=== PATIENT | female | born 1965 | race Native Hawaiian/Other Pacific Islander ===

== ENCOUNTER 2023-10-06 17:11 | Observation (INO) | payer MEDICARE ==
[2023-10-06 20:41] LABS: Hematocrit 22.4 % (36.0-47.0); Hemoglobin 6.2 g/dL (12.0-16.0); Manual Diff?? YES; Mean Corpuscular HGB CONC 27.7 g/dL (32.0-36.0); Mean Corpuscular Hemoglobin 23.4 pg (27.0-31.0); Mean Corpuscular Volume 84.5 fl (78.0-98.0); Mean Platelet Volume 10.9 fL (7.4-10.4); Platelet Count 259 10x3/uL (130-400); RBC Distribution Width 16.4 % (11.5-14.5); Red Blood Cell (RBC) Count 2.65 mill/uL (4.20-5.40); White Blood Cell (WBC) Count 5.7 10x3/uL (4.8-10.8)
[2023-10-06] MEDS ORDERED: Acetaminophen 325 MG TAB PO PRN (20:49)
[2023-10-06] MEDS ORDERED: Ondansetron PF 4 MG/2 ML Vial IVP PRN (20:49)
[2023-10-06] MEDS ORDERED: Ondansetron ODT 4 MG TAB PO PRN (20:49)
[2023-10-06 20:52] LABS: Delete Auto Diff?? YES
[2023-10-06 21:38] LABS: INR-International Normal Ratio 1.1; PTT 26.5 sec (22.9-36.1); Prothrombin Time 13.7 sec (12.0-14.7)
[2023-10-06 22:17] LABS: Band 1 % (5-11); Eosinophils 3 % (0-10); Hypochromia MODERATE=16-30 cells (100X) (0-5/hpf); Lymphocytes 59 % (21-51); Monocytes 6 % (0-10); Neutrophil 28 % (42-75)
[2023-10-06 22:18] LABS: Anisocytosis MODERATE=16-30 cells (100X) (0-5/hpf); Platelet Adequacy Comment Appears Adequate
[2023-10-06 22:44] LABS: Iron Less than 8 ug/dL (50-170); Iron Binding Capacity, Total 363 mcg/dL (265-497)
[2023-10-06 23:24] LABS: Ferritin 2.47 ng/mL (10-291)
[2023-10-07 04:57] LABS: #Eosinphils 0.1 thou/uL (0.0-0.7); #Monocytes 0.7 thou/uL (0.11-0.59); #Neutrophils 1.3 thou/uL (1.40-6.50); %Basophils 0.9 % (0.0-1.0); %Eosinophils 1.5 % (0.0-10.0); %Lymphocytes 51.6 % (21.0-51.0); %Monocytes 16.3 % (0.0-10.0); %Neutrophils 29.3 % (42.0-75.0); Hematocrit 28.7 % (36.0-47.0); Hemoglobin 8.1 g/dL (12.0-16.0); Mean Corpuscular HGB CONC 28.2 g/dL (32.0-36.0); Mean Corpuscular Hemoglobin 22.6 pg (27.0-31.0); Mean Platelet Volume 11.3 fL (7.4-10.4); Platelet Count 253 10x3/uL (130-400); RBC Distribution Width 16.6 % (11.5-14.5); Red Blood Cell (RBC) Count 3.58 mill/uL (4.20-5.40); White Blood Cell (WBC) Count 4.6 10x3/uL (4.8-10.8)
[2023-10-07 05:27] LABS: Anion Gap 9 mmol/L (10-20); BUN (Urea Nitrogen) 8 mg/dL (9.8-20.1); Calc. Creatinine Clearance 0 mL/min (70-130); Calcium 8.6 mg/dL (7.8-10.44); Carbon Dioxide 25 mmol/L (22-29); Chloride 110 mmol/L (98-107); Estimated GFR 101; Glucose 92 mg/dL (70-105); Sodium 140 mmol/L (136-145)
[2023-10-07] MEDS: Levothyroxine Sodium 50 MCG TAB PO SCH (05:54)
[2023-10-07 06:01] LABS: Mean Corpuscular Volume 80.2 fl (78.0-98.0)
[2023-10-07] MEDS: Polyethylene Glycol 3350 17 GM Packet PO SCH (09:36)
[2023-10-07] MEDS: Citalopram 20 MG TAB PO SCH (09:51)
[2023-10-07] MEDS: Ferrous Sulfate 325 MG TAB PO SCH (09:52)
[2023-10-07] MEDS: Iron, Sodium Ferric Gluconate 125 MG in Sodium Chloride 0.9% 100 ML IVPB SCH (12:31)
[2023-10-07] MEDS: Pantoprazole 40 MG VIAL IVP SCH (20:19)
[2023-10-08 05:14] LABS: #Eosinphils 0.1 thou/uL (0.0-0.7); #Monocytes 0.9 thou/uL (0.11-0.59); #Neutrophils 1.4 thou/uL (1.40-6.50); %Basophils 0.6 % (0.0-1.0); %Eosinophils 1.5 % (0.0-10.0); %Lymphocytes 46.3 % (21.0-51.0); %Monocytes 19.9 % (0.0-10.0); %Neutrophils 31.3 % (42.0-75.0); Hemoglobin 8.1 g/dL (12.0-16.0); Mean Corpuscular HGB CONC 28.9 g/dL (32.0-36.0); Mean Corpuscular Volume 79.5 fl (78.0-98.0); Mean Platelet Volume 11.1 fL (7.4-10.4); Platelet Count 243 10x3/uL (130-400); RBC Distribution Width 16.7 % (11.5-14.5); Red Blood Cell (RBC) Count 3.52 mill/uL (4.20-5.40); White Blood Cell (WBC) Count 4.6 10x3/uL (4.8-10.8)
[2023-10-08 05:45] LABS: Anion Gap 10 mmol/L (10-20); BUN (Urea Nitrogen) 8 mg/dL (9.8-20.1); Calc. Creatinine Clearance 70 mL/min (70-130); Calcium 8.8 mg/dL (7.8-10.44); Carbon Dioxide 25 mmol/L (22-29); Chloride 108 mmol/L (98-107); Estimated GFR 102; Glucose 83 mg/dL (70-105); Potassium 3.5 mmol/L (3.5-5.1); Sodium 139 mmol/L (136-145)
[2023-10-08 06:54] LABS: Anisocytosis SLIGHT = 6-15 cells HPF (0-5); CellaVision Operator ID lab.abc; Hypochromia SLIGHT = 6-15 cells HPF (0-5); Platelet Adequacy Comment Platelets Normal; Polychromasia SLIGHT = 2-3 cells HPF (0-2)
[2023-10-08 13:38] VITALS: BP 118/78; TEMP 98
[2023-10-10 13:37] LABS: EliA Celiac New Method **** NEW METHOD ****; t-Transglutaminase (tTG) IgA 0.9 EliAU/mL (<7 Negative)
== END 2023-10-08 14:16 ==
LOC: T4-A 17:11 → INTOOBSV 17:11
PROVIDERS: ADMIT Physician Assistant; ATTEND Family Medicine
DX: D50.9 Iron deficiency anemia, unspecified (principal); E03.9 Hypothyroidism, unspecified; K59.00 Constipation, unspecified; R13.10 Dysphagia, unspecified; H91.90 Unspecified hearing loss, unspecified ear; H54.7 Unspecified visual loss; H26.9 Unspecified cataract; F41.9 Anxiety disorder, unspecified; F32.A Depression, unspecified; Z79.890 Hormone replacement therapy; Z79.899 Other long term (current) drug therapy
CPT/HCPCS: 36430; 80048 ×2; 82607; 82728; 82784; 83516; 83540; 83550; 84443; 85025 ×3; 85610; 85730; 86850; 86900; 86901; 86920; P9016; 36415; 96374; 96375; 96376; C9113; G0378; J2916; J3490